=== PATIENT | male | born 1960 | race African-American/Black ===

== ENCOUNTER 2023-06-09 08:54 | Emergency (ER) | payer MEDICAID ==
[~2023-06-09] VITALS: Ht 193 cm; Wt 109.0 kg
[~2023-06-09 08:54] MED LIST: CEPH500C2 MT; DIPH25CA83 MT
[2023-06-09 09:12] VITALS: O2SAT 100
[2023-06-09 09:23] LABS: BASOPHILS % 0.5 % (0.0-2.0); EOSINOPHILS % 0.8 % (0.0-5.0); HEMATOCRIT. 39.5 % (42.0-52.0); HEMOGLOBIN. 12.8 g/dL (14.0-18.0); LYMPHOCYTES % 27.9 % (20.0-50.0); MEAN CORPUSCULAR HEMOGLOBIN 28.9 pg (28.0-32.0); MEAN CORPUSCULAR HGB CONC 32.3 g/dL (31.0-37.0); MEAN CORPUSCULAR VOLUME 89.3 fL (80.0-94.0); MEAN PLATELET VOLUME 6.4 fl (7.4-10.4); MONOCYTES % 6.8 % (2.0-8.0); PLATELET 240 x1000/uL (130-400); RED BLOOD CELL COUNT 4.42 mill/uL (4.7-6.1); RED CELL DISTRIBUTION WIDTH 13.9 % (11.6-14.6); WHITE BLOOD COUNT 6.5 x1000/uL (4.5-11.0)
[2023-06-09 09:41] LABS: CALCIUM 9.7 mg/dL (8.7-10.4); CARBON DIOXIDE 26 mEq/L (21-32); CHLORIDE 106 mEq/L (98-107); CREATININE 1.4 mg/dL (0.6-1.3); GLUCOSE 87 mg/dL (70-105); SODIUM 138 mEq/L (136-145); UREA NITROGEN BLOOD 13 mg/dL (9-23)
[2023-06-09 12:51] VITALS: BP 133/88; PULSE 63; RESP 18; TEMP 98.5
== END 2023-06-09 12:50 | disposition home or self-care (01) ==
LOC: ER 08:54
DX: Z00.00 Encounter for general adult medical examination without abnormal findings (principal); Z86.59 Personal history of other mental and behavioral disorders
CPT/HCPCS: 36415; 80048; 85025; 99283

== ENCOUNTER 2024-04-21 16:31 | Emergency (ER) | payer MEDICARE, MEDICAID ==
[~2024-04-21] VITALS: Ht 193 cm; Wt 108.8 kg
[2024-04-21 16:32] VITALS: O2SAT 98
[2024-04-21 16:37] VITALS: TEMP 36.8; O2SAT 98
[2024-04-21 18:20] LABS: BASOPHILS % 0.6 % (0.0-2.0); EOSINOPHILS % 0.5 % (0.0-5.0); HEMATOCRIT. 31.1 % (42.0-52.0); LYMPHOCYTES % 18.8 % (20.0-50.0); MEAN CORPUSCULAR HGB CONC 32.2 g/dL (31.0-37.0); MEAN PLATELET VOLUME 6.6 fl (7.4-10.4); MONOCYTES % 6.9 % (2.0-8.0); NEUTROPHILS % 73.2 % (40.0-76.0); PLATELET 329 x1000/uL (130-400); RED BLOOD CELL COUNT 3.58 mill/uL (4.7-6.1); RED CELL DISTRIBUTION WIDTH 13.7 % (11.6-14.6); WHITE BLOOD COUNT 7.9 x1000/uL (4.5-11.0)
[2024-04-21 18:23] LABS: CHLORIDE 109 mEq/L (98-107); POTASSIUM 3.7 mEq/L (3.5-5.1); SODIUM 143 mEq/L (136-145)
[2024-04-21 18:24] LABS: CALCIUM 9.3 mg/dL (8.7-10.4); CARBON DIOXIDE 24 mEq/L (21-32)
[2024-04-21 18:29] LABS: CREATININE 1.2 mg/dL (0.6-1.3); GLUCOSE 132 mg/dL (70-105); UREA NITROGEN BLOOD 17 mg/dL (9-23)
[2024-04-21] MEDS ORDERED: HYDR-4001 MT (19:09)
[2024-04-21] MEDS ORDERED: TAMS-11 PO (19:12)
[2024-04-21] MEDS ORDERED: NALOXONE HCL 0.4MG/ML VIAL IV PRN (19:15)
[2024-04-21 19:22] VITALS: BP 105/72; PULSE 104; RESP 16
[2024-04-21] MEDS: HYDROCODONE/ACETAMINOPHEN 5/325MG TABLET PO SCH (19:22)
== END 2024-04-21 21:02 | disposition home or self-care (01) ==
LOC: ER 16:31
DX: M79.89 Other specified soft tissue disorders (principal); M79.604 Pain in right leg; Z79.01 Long term (current) use of anticoagulants; F20.9 Schizophrenia, unspecified; Z79.899 Other long term (current) drug therapy; Z98.890 Other specified postprocedural states
CPT/HCPCS: 36415; 80048; 85025; 93005; 93970; 99284

== ENCOUNTER 2024-06-05 18:32 | Emergency (ER) | payer MEDICARE, MEDICAID ==
[~2024-06-05] VITALS: Ht 193 cm; Wt 109.0 kg
[~2024-06-05 18:32] MED LIST changes: +HYDR-4001 MT; +TAMS-11 PO
[2024-06-05 18:44] VITALS: BP 151/74; PULSE 89; RESP 20; TEMP 36.8; O2SAT 100; O2SAT 99
[2024-06-05] MEDS ORDERED: TAMS-11 PO (19:05)
== END 2024-06-05 19:10 | disposition home or self-care (01) ==
LOC: ER 18:32
DX: Z00.8 Encounter for other general examination (principal); F20.9 Schizophrenia, unspecified; N40.0 Benign prostatic hyperplasia without lower urinary tract symptoms; Z98.890 Other specified postprocedural states; Z79.899 Other long term (current) drug therapy
CPT/HCPCS: 99281